=== PATIENT | female | born 2000 | race Caucasian/White ===

== ENCOUNTER 2019-12-28 06:28 | Emergency (ER) | payer OTHER ==
[2019-12-28 07:06] LABS: Blood Gas Oxyhemoglobin 94.9 % (94-97); Blood O2 Saturation 96.5 % (92-98.5)
--- NOTE | 2019-12-28 07:38 | EDPHYS ---
Physician Documentation [facility] Name: Annabella Saenz Age: 19 yrs Sex: Female : 2000 Arrival Date: 12/28/2019 Time: 06:31 Bed 6 Private MD: BOLIVAR Physician Javier Rodrigues HPI: 12/28 07:02 This 19 yrs old Female presents to ER via Ambulatory with complaints of High jmm Blood Sugar. 07:02 The patient or guardian reports hyperglycemia, that was potentially precipitated by not jmm taking insulin. Onset: The symptoms/episode began/occurred today. Associated signs and symptoms: Pertinent negatives: vomiting. This is a 19 year old female with a history of DM I that presents to the ED with elevated blood glucose. Patient states her BGL was taken at work and elevated. Patient states being upset at work due to being told her parents are . 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 The patient states that she was not. Then she was asked whether she had ever been suicidal, patient stated yes and told her at that time her plan would be to use insulin. Patient her work would not let her take her insulin and advised she would need to be evaluated in the ED. Patient currently denies SI, vomiting, shortness of breath. Patient states stress does exacerbate her BGL. . 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 - Coronavirus screen:: The patient has NOT traveled to [place] in the past 14 days. Proceed with normal triage process as indicated. - Social history:: Smoking status: Patient denies any tobacco usage or history of. - Ebola Screening: : No symptoms or risks identified at this time. ROS: 07:02 Constitutional: Negative for fever, chills, and weight loss, Cardiovascular: Negative jmm for chest pain, palpitations, and edema, Respiratory: Negative for shortness of breath, cough, wheezing, and pleuritic chest pain, Abdomen/GI: Negative for abdominal pain, nausea, vomiting, diarrhea, and constipation, Neuro: Negative for headache, weakness, numbness, tingling, and seizure. 07:02 All other systems are negative. 07:02 Endocrine: Negative for neck swelling, polydipsia, polyuria, polyphagia, and marked [facility] weight changes. Exam: 07:02 Constitutional: This is a well developed, well nourished patient who is awake, alert, jmm and in no acute distress. Head/Face: atraumatic. Eyes: EOMI, no conjunctival erythema appreciated ENT: Moist Mucus Membranes Neck: Trachea midline, Supple Chest/axilla: Normal chest wall appearance and motion. Cardiovascular: Regular rate and rhythm. No edema appreciated Respiratory: Normal respirations, no respiratory distress appreciated 07:02 Abdomen/GI: Inspection: abdomen appears normal, Palpation: soft, in all quadrants. 07:02 Musculoskeletal/extremity: ROM: intact in all extremities. 07:02 Skin: Appearance: Color: normal in color. 07:02 Neuro: Orientation: is normal, Mentation: is normal, Memory: is normal. 07:02 Psych: Behavior/mood is pleasant, cooperative. Vital Signs: 06:48 BP 128 / 77; Pulse 100; Resp 16 S; Temp 98.2(O); Pulse Ox 100% on R/A; Weight 72.57 kg bb (R); Height 5 ft. 4 in. (162.56 cm) (R); Pain 0/10; 07:30 BP 115 / 68; Pulse 103; Resp 20; Pulse Ox 100% on R/A; Pain 0/10; em 06:48 Body Mass Index 27.46 (72.57 kg, 162.56 cm) bb MDM: 06:46 Patient medically screened. [facility] 07:20 Data reviewed: vital signs, nurses notes, lab test result(s). [facility] 07:20 Counseling: I had a detailed discussion with the patient and/or guardian regarding: the [facility] historical points, exam findings, and any diagnostic results supporting the discharge/admit diagnosis, the need for further work-up and treatment in the hospital. Refusal of service: The patient/guardian displays adequate decision making capability and despite a detailed discussion of alternatives, benefits, risks, and consequences refuses: Admission to the hospital for further work-up and treatment. ED course: Patient is currently non suicidal with no intent to harm herself. The patient initially refuse labs and IVF. I was able to convince her to get an ABG to test for acidosis. Finger stick and ABG both abnormal. I explained the need to further evaluation along with IVF and possible admission. Patient appeared to be very knowledgeable about her condition and agreed to return to the ED if she develops symptoms or unable to control BGL at home. . 12/28 06:45 Order name: ABG; Complete Time: 07:46 [facility] 12/28 06:33 Order name: Fingerstick Glucose; Complete Time: 06:52 [facility] 12/28 06:55 Order name: Glucose, Ancillary Testing; Complete Time: 07:01 [facility] 12/28 07:20 Order name: Misc. Order: AMA; Complete Time: 07:35 [facility] Administered Medications: No medications were administered Disposition: 12/28/19 07:38 Patient has left against medical advice. - Patients states they are going to Home. - Condition is Stable. Work release form form. Signatures: Dispatcher [employer] [facility] Juancho Isaac PA PA Miquel Bryan, Ayanna Abad RN, RN RN bb Corrections: (The following items were deleted from the chart) 07:37 06:45 Urine Dipstick-Ancillary ordered. [facility] em 07:38 07:38 12/28/2019 07:38 Patients has left against medical advice. Patient states they em are going to Home. Condition is Stable. Forms are Work release form. em 08:09 07:02 This is a 19 year old female with a history of DM I that presents to the ED with [facility] elevated blood glucose. Patient states her BGL was taken at work and elevated. Patient was advised to go to the ED. Denies vomiting, shortness of breath. . [facility] 08:13 07:02 This is a 19 year old female with a history of DM I that presents to the ED with [facility] elevated blood glucose. Patient states her BGL was taken at work and elevated. . [facility]
--- NOTE | 2019-12-28 07:38 | ER ---
Nurse's Notes [facility] Name: Annabella Saenz Age: 19 yrs Sex: Female : 2000 Arrival Date: 12/28/2019 Time: 06:31 Bed 6 Private MD: Diagnosis: Presentation: 12/28 06:43 Presenting complaint: Patient states: she was having some emotional issues at work last bb night and they sent her to the ED to have her blood sugar checked since she is a diabetic type 1. Transition of care: patient was not received from another setting of care. Onset of symptoms was December 27, 2019. Risk Assessment: Do you want to hurt yourself or someone else? Patient reports no desire to harm self or others. Initial Sepsis Screen: Does the patient meet any 2 criteria? No. Patient's initial sepsis screen is negative. Does the patient have a suspected source of infection? No. Patient's initial sepsis screen is negative. Care prior to arrival: None. 06:43 Method Of Arrival: Ambulatory bb 06:43 Acuity: DAREN 3 bb 06:49 Note POC registered > 500 lab draw sent to lab. 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 - Coronavirus screen:: The patient has NOT traveled to [place] in the past 14 days. Proceed with normal triage process as indicated. - Social history:: Smoking status: Patient denies any tobacco usage or history of. - Ebola Screening: : No symptoms or risks identified at this time. Screenin:05 Abuse screen: Denies threats or abuse. Nutritional screening: No deficits noted. em Tuberculosis screening: No symptoms or risk factors identified. Fall Risk None identified. Assessment: 07:05 General: Appears in no apparent distress. comfortable, Behavior is calm, cooperative, em appropriate for age, Denies fever. Pain: Denies pain. Neuro: Level of Consciousness is awake, alert, obeys commands, Oriented to person, place, time, situation, Appropriate for age. Cardiovascular: Capillary refill < 3 seconds Patient's skin is warm and dry. Respiratory: Airway is patent Respiratory effort is even, unlabored, Respiratory pattern is regular, symmetrical. GI: Abdomen is flat, Reports nausea, vomiting. Derm: Skin is intact, is healthy with good turgor, Skin is pink, warm \T\ dry. Musculoskeletal: Capillary refill < 3 seconds, Range of motion: intact in all extremities. 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 Vital Signs: 06:48 BP 128 / 77; Pulse 100; Resp 16 S; Temp 98.2(O); Pulse Ox 100% on R/A; Weight 72.57 kg bb (R); Height 5 ft. 4 in. (162.56 cm) (R); Pain 0/10; 07:30 BP 115 / 68; Pulse 103; Resp 20; Pulse Ox 100% on R/A; Pain 0/10; em 06:48 Body Mass Index 27.46 (72.57 kg, 162.56 cm) ED Course: 06:31 Patient arrived in ED. cl3 06:32 Juancho Isaac PA is PHCP. [facility] 06:32 Javier Rodrigues MD is Attending Physician. [facility] 06:46 Triage completed. bb 06:48 Arm band placed on Patient placed in an exam room, on a stretcher, on pulse oximetry. bb 07:05 Patient has correct armband on for positive identification. Bed in low position. Call em light in reach. Side rails up X2. Adult w/ patient. 07:19 Miquel Mcnair, RN is Primary Nurse. em 07:36 No provider procedures requiring assistance completed. Patient did not have IV access em during this emergency room visit. Administered Medications: No medications were administered Outcome: 07:36 AMA AMA form signed em 07:38 Patient left the ED. em Signatures: Juancho Isaac PA PA Miquel Bryan, RN RN Ayanna Guadarrama RN RN Alicia Milner cl3
== END 2019-12-28 07:38 | disposition left against medical advice (07) ==
LOC: ER 06:28
DX: E11.65 Type 2 diabetes mellitus with hyperglycemia (principal); Z88.0 Allergy status to penicillin; Z79.4 Long term (current) use of insulin; Z53.29 Procedure and treatment not carried out because of patient's decision for other reasons
CPT/HCPCS: 82805; 82947; 99282

== ENCOUNTER 2020-04-12 21:17 | Emergency (ER) | payer BC, OTHER, SELFPAY ==
--- OUTSIDE RECORDS SUMMARY | 2020-04-12 21:19 | XMS REPORT | Continuity of Care Document ---
:2000 Author Organization Personally Information [employer] Care Team Providers Name Role Phone [employer] Unavailable Un available Problems Problem Status Onset Classification Date Comments Sourc e Date Reported DIABETIC Active [facility] KETOACIDOSIS 9 Max DKA Active [facility] 9 Max OTH DIABETES Active Memoria l MELLITUS WITH Ray n KETOACIDOSIS Medications No Data Provided for This Section Allergies, Adverse Reactions, Alerts No Known Medication Allergies Immunizations No Data Provided for This Section Results No Data Provided for This Section Pathology Reports No Data Provided for This Section Diagnostic Reports No Data Provided for This Section Consultation Notes No Data Provided for This Section Discharge Summaries No Data Provided for This Section History and Physicals No Data Provided for This Section Vital Signs No Data Provided for This Section Encounters No Data Provided for This Section Procedures No Data Provided for This Section Assessment and Plan No Data Provided for This Section Plan of Care No Data Provided for This Section Social History No Data Provided for This Section Family History No Data Provided for This Section Advance Directives No Data Provided for This Section Functional Status No Data Provided for This Section
--- OUTSIDE RECORDS SUMMARY | 2020-04-12 21:20 | XMS REPORT | Continuity of Care Document ---
:2000 Author Organization [facility] t Address [address] [place] [address] Care Team Providers Name Role Phone Unavailable Unavailable Unavailable Payers Payer Name Policy Type Policy Number Effective Date Expiration Date S ource Problems Condition Condition Condition Status Onset Resolution Last Treating Co mments Source Name Details Category Date Date Treatment Clinician Date DIABETIC Diagnosis Active 2019-04-04 M emoria KETOACIDOS 03-28 07:19:00 l IS DIABETIC 00:00: Ray n KETOACIDOS 00 IS Active 9 [facility] DKA Diagnosis Active 2019-03-28 Mem oria 5-22 13:40:00 l DKA 00:00: [place] 00 [facility] Active 2019-04-04 Mem oria [facility] 07:19[facility] KETOACIDOS MELLITUS IS WITH KETOACIDOS IS Active [facility] Allergies, Adverse Reactions, Alerts Allergy Allergy Status Severity Reaction(s) Onset Inactive Treating Comm ents Source Name Type Date Date Clinician Penic[place] DA Active [facility] ins 2-04 Clear 00:00: [place] 00 [facility] Medications This patient has no known medications. Procedures This patient has no known procedures. Encounters Start End Encounter Admission Attending Care Care Encounter Source Date/Time Date/Time Type Type Clinicians Facility Department ID 2019-09-02 2019-09-02 Inpatient E [id number] 03:12:00 00:27:00 2019-03-28 2019-03-28 Emergency E [facility] 12:17:00 12:17:00 Results Test Description Test Time Test Comments Results Result Comments Source GLUCOSE BEDSIDE TESTING 2019-01-18 13:36:00 Test Item Value Reference Range Interpretation Comme nts GLUCOSE BEDSIDE TESTING (test code = GLUBED) 200 mg/dL 70-110 H [id number] 12:37:00 Test Item Value Reference Range Interpretation Comments PHOSPHOROUS (test code = PHOS) 3.1 MG/DL 2.5-4.9 N COMPREHENSIVE METABOLIC [id number] 11:51:00 Test Item Value Reference Range Interpretation Comments SODIUM (test code = NA) 132 mmol/L 134-147 L POTASSIUM (test code = 3.5 mmol/L 3.4-5.0 N K) CHLORIDE (test code = 97 mmol/L 100-108 L CL) CARBON DIOXIDE (test 14 mmol/L 21-32 L code = CO2) ANION GAP (test code = 21.0 GAP calc 4.0-15.0 H GAP) GLUCOSE (test code = 353 MG/DL 70-110 H GLU) BLOOD UREA NITROGEN 33 MG/DL 7-18 H (test code = BUN) GLOMERULAR FILTRATION >=60 max estimate >60 RATE (test code = GFR) estGFR CREATININE (test code = 1.1 MG/DL 0.6-1.0 H CREAT) TOTAL PROTEIN (test code 7.7 G/DL 6.4-8.2 N = PROT) ALBUMIN (test code = 3.4 G/DL 3.4-5.0 N ALB) GLOBULIN (test code = 4.3 GM/dL GLOB) ALBUMIN/GLOBULIN RATIO 0.8 RATIO 1.2-2.2 L (test code = A/G) CALCIUM (test code = CA) 9.4 MG/DL 8.5-10.1 N BILIRUBIN TOTAL (test 0.40 MG/DL 0.2-1.2 N code = BILT) SGOT/AST (test code = 17 Unit/L 15-37 N AST) SGPT/ALT (test code = 27 Unit/L 12-78 N ALT) ALKALINE PHOSPHATASE 130 Unit/L 45-117 H TOTAL (test code = ALKP) [id number] 11:51:00 Test Item Value Reference Range Interpretation Comments LIPASE (test code = LIP) 123 Unit/L 114-286 N URINALYSIS [id number] 11:46:00 Test Item Value Reference Range Interpretation Comments UA COLOR (test code = COLU) YELLOW discript YEL/STRAW UA APPEARANCE (test code = CLEAR discript CLEAR APPU) UA GLUCOSE DIPSTICK (test 3+ mg/dL NEG A code = DGLUU) UA BILIRUBIN DIPSTICK (test 2+ mg/dL NEG A code = BILU) UA KETONE DIPSTICK (test 3+ mg/dL NEG A code = KETU) UA SPECIFIC GRAVITY (test 1.020 SG 1.005-1.030 code = SGU) UA BLOOD DIPSTICK (test NEGATIVE mg/DL NEG code = BART) UA PH DIPSTICK (test code = 5.5 pH UNITS 5.0-7.0 BILLIE) UA PROTEIN DIPSTICK (test NEGATIVE mg/dL NEG code = PROU) UA UROBILINIOGEN DIPSTICK 0.2 mg/dL <2.0 (test code = URO) UA NITRITE DIPSTICK (test NEGATIVE SCREEN NEG code = FAUSTINA) UA LEUKOCYTE ESTERASE NEGATIVE Leuk/mcL NEGATIVE DIPSTICK (test code = LEUU) COMPREHENSIVE METABOLIC [id number] 11:45:00 Test Item Value Reference Range Interpretation Comments SODIUM (test code = NA) 132 mmol/L 134-147 L POTASSIUM (test code = K) 3.5 mmol/L 3.4-5.0 N CHLORIDE (test code = CL) 97 mmol/L 100-108 L CARBON DIOXIDE (test code = 14 mmol/L 21-32 L CO2) ANION GAP (test code = GAP) 21.0 GAP calc 4.0-15.0 H GLUCOSE (test code = GLU) 353 MG/DL 70-110 H BLOOD UREA NITROGEN (test code 33 MG/DL 7-18 H = BUN) GLOMERULAR FILTRATION RATE estGFR >60 (test code = GFR) CREATININE (test code = CREAT) MG/DL 0.6-1.0 TOTAL PROTEIN (test code = G/DL 6.4-8.2 PROT) ALBUMIN (test code = ALB) G/DL 3.4-5.0 GLOBULIN (test code = GLOB) GM/dL ALBUMIN/GLOBULIN RATIO (test RATIO 1.2-2.2 code = A/G) CALCIUM (test code = CA) 9.4 MG/DL 8.5-10.1 N BILIRUBIN TOTAL (test code = MG/DL 0.2-1.2 BILT) SGOT/AST (test code = AST) Unit/L 15-37 SGPT/ALT (test code = ALT) Unit/L 12-78 ALKALINE PHOSPHATASE TOTAL Unit/L 45-117 (test code = ALKP) [id number] 11:45:00 Test Item Value Reference Range Interpretation Comments LIPASE (test code = LIP) Unit/L 114-286 UR HCG [id number] 11:41:00 Test Item Value Reference Range Interpretation Comments UR HCG QUAL (test code = HCGQLU) NEGATIVE NEGATIVE GLUCOSE BEDSIDE [id number] 11:36:00 Test Item Value Reference Range Interpretation Comments GLUCOSE BEDSIDE TESTING (test code 339 mg/dL 70-110 H = GLUBED) CBC W/AUTO [id number] 11:36:00 Test Item Value Reference Range Interpretation Comments WHITE BLOOD CELL (test code = 6.5 K/mm3 3.5-11.0 N WBC) RED BLOOD CELL (test code = RBC) 4.46 M/mm3 4.70-6.10 L HEMOGLOBIN (test code = HGB) 14.7 G/DL 10.4-14.9 N HEMATOCRIT (test code = HCT) 43.7 % 31.5-44.1 N MEAN CELL VOLUME (test code = 98.0 Fl 84.5-98.6 N MCV) MEAN CELL HGB (test code = MCH) 33.0 pg 27.0-34.2 N MEAN CELL HGB CONCETRATION (test 33.6 G/DL 31.5-34.0 N code = MCHC) RED CELL DISTRIBUTION WIDTH (test 12.2 SD 11.5-14.5 N code = RDW) PLATELET COUNT (test code = PLT) 316.0 K/mm3 150-450 N MEAN PLATELET VOLUME (test code = 8.50 fL 7.0-10.5 N MPV) NEUTROPHIL % (test code = NT%) 68.0 % 24.0-85.0 N LYMPHOCYTE % (test code = LY%) 22.2 % 20.5-51.1 N MONOCYTE % (test code = MO%) 9.2 % 1.7-9.3 N EOSINOPHIL % (test code = EO%) 0.3 % 0.0-6.0 N BASOPHIL % (test code = BA%) 0.3 % 0.0-2.0 N NEUTROPHIL # (test code = NT#) 4.45 K/mm3 1.8-7.6 N LYMPHOCYTE # (test code = LY#) 1.5 K/mm3 0.6-3.2 N MONOCYTE # (test code = MO#) 0.6 K/mm3 0.3-1.1 N EOSINOPHIL # (test code = EO#) 0.0 K/mm3 0.0-0.4 N BASOPHIL # (test code = BA#) 0.0 K/mm3 0.0-0.1 N MANUAL DIFF REQUIRED (test code = NO DIFF/SCN CRITERIA MDIFF)
[2020-04-12] MEDS ORDERED: NA CHLORIDE 0.9% 1,000 ML ONE ×2 (21:36→22:15)
[2020-04-12] MEDS ORDERED: ONDANSETRON 4 MG/2 ML VIAL ONE (21:36)
[2020-04-12 21:46] LABS: Absolute Lymphocytes (CBC) 2.2 K/uL (0.7-4.9); Basophils % 0.4 % (0-1.3); Hematocrit 46.8 % (36.0-45.0); Lymphocytes % 18.4 % (15.3-44.8); MPV 7.2 fL (7.6-11.3); RBC Red Blood Cell Count 4.77 M/uL (3.86-4.86)
[2020-04-12 22:04] LABS: Potassium 3.4 mmol/L (3.5-5.1)
--- NOTE | 2020-04-12 23:02 | EDPHYS ---
Physician Documentation [facility] Name: Annabella Saenz Age: 19 yrs Sex: Female : 2000 Arrival Date: 04/12/2020 Time: 21:23 Bed 5 Private MD: ED Physician Jesus Brito HPI: 04/12 23:04 This 19 yrs old Female presents to ER via Wheelchair with complaints of kb Vomiting/Diarrhea. 23:04 The patient presents to the emergency department with nausea, vomiting, diarrhea. kb Onset: The symptoms/episode began/occurred 2 hour(s) ago. Possible causes: bad food exposure, milk. The symptoms are aggravated by nothing. The symptoms are alleviated by nothing. Associated signs and symptoms: Pertinent positives: diarrhea, nausea, vomiting. Severity of symptoms: At their worst the symptoms were moderate in the emergency department the symptoms are unchanged. The patient has not experienced similar symptoms in the past. The patient has not recently seen a physician. Pt reports she drank some bad milk around 1600, then started having vomiting and diarrhea at 2000. States she is diabetic so she was afraid of getting dehydrated and going into DKA so she came in. . 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 - Social history:: Smoking status: Reported history of juuling and/or vaping. Patient uses alcohol, only on a social basis. Patient/guardian denies using street drugs. ROS: 23:03 Constitutional: Negative for fever, chills, and weight loss, Neck: Negative for injury, kb pain, and swelling, Cardiovascular: Negative for chest pain, palpitations, and edema, Respiratory: Negative for shortness of breath, cough, wheezing, and pleuritic chest pain, Back: Negative for injury and pain, MS/Extremity: Negative for injury and deformity, Skin: Negative for injury, rash, and discoloration, Neuro: Negative for headache, weakness, numbness, tingling, and seizure. 23:03 Abdomen/GI: Positive for nausea, vomiting, and diarrhea, Negative for abdominal pain. Exam: 23:03 Head/Face: Normocephalic, atraumatic. Chest/axilla: Normal chest wall appearance and kb motion. Nontender with no deformity. No lesions are appreciated. Cardiovascular: Regular rate and rhythm with a normal S1 and S2. No gallops, murmurs, or rubs. Normal PMI, no JVD. No pulse deficits. Respiratory: Lungs have equal breath sounds bilaterally, clear to auscultation and percussion. No rales, rhonchi or wheezes noted. No increased work of breathing, no retractions or nasal flaring. Abdomen/GI: Soft, non-tender, with normal bowel sounds. No distension or tympany. No guarding or rebound. No evidence of tenderness throughout. Skin: Warm, dry with normal turgor. Normal color with no rashes, no lesions, and no evidence of cellulitis. MS/ Extremity: Pulses equal, no cyanosis. Neurovascular intact. Full, normal range of motion. Neuro: Awake and alert, GCS 15, oriented to person, place, time, and situation. Cranial nerves II-XII grossly intact. Motor strength 5/5 in all extremities. Sensory grossly intact. Cerebellar exam normal. Normal gait. 23:03 Constitutional: The patient appears alert, awake, uncomfortable. Vital Signs: 21:31 BP 124 / 88; Pulse 84; Resp 19; Temp 98.3; Pulse Ox 97% ; Pain 0/10; ll1 22:43 BP 110 / 78; Pulse 92; Resp 17; Pulse Ox 100% on R/A; rv 23:06 BP 106 / 86; Pulse 93; Resp 16; Temp 98; Pulse Ox 100% on R/A; rv MDM: 21:25 Patient medically screened. kb 23:01 Data reviewed: vital signs, nurses notes. Data interpreted: Pulse oximetry: on room air kb is 100 %. Interpretation: normal. Counseling: I had a detailed discussion with the patient and/or guardian regarding: the historical points, exam findings, and any diagnostic results supporting the discharge/admit diagnosis, lab results, the need for outpatient follow up, a family practitioner, to return to the emergency department if symptoms worsen or persist or if there are any questions or concerns that arise at home. 23:03 ED course: Pt tolerating PO intake. States she feels much better. . kb 06/06 21:31 Order name: CBC with Diff; Complete Time: 21:55 kb 04/12 21:31 Order name: Basic Metabolic Panel; Complete Time: 22:05 kb 04/12 21:42 Order name: Glucose, Ancillary Testing; Complete Time: 21:44 EDMS 04/12 21:31 Order name: IV Start; Complete Time: 21:32 kb 06 21:31 Order name: Blood Glucose Level; Complete Time: 21:31 kb 04/12 22:45 Order name: PO challenge; Complete Time: 22:45 rv Administered Medications: 21:32 Drug: NS 0.9% 1000 ml Route: IV; Rate: 1000 ml; Site: right forearm; rv 22:11 Follow up: IV Status: Completed infusion; IV Intake: 1000ml rv 21:32 Drug: Zofran (Ondansetron) 4 mg Route: IVP; Site: right forearm; rv 22:11 Follow up: Response: Marked relief of symptoms; Vomiting decreased rv 22:10 Drug: NS 0.9% 1000 ml Route: IV; Rate: 1000 ml; Site: right forearm; rv 22:44 Follow up: IV Status: Completed infusion; IV Intake: 1000ml rv Disposition: 04/13 06:23 Co-signature as Attending Physician, Jesus Brito MD. [email or web address] Disposition: 04/12/20 23:02 Discharged to Home. Impression: Nausea and vomiting, Diarrhea, unspecified. - Condition is Stable. - Discharge Instructions: Nausea and Vomiting, Adult, Hykj-lv-[id number], Diarrhea, Adult, [id number], Food Poisoning, [id number]. - Prescriptions for Zofran 4 mg Oral Tablet - take 1 tablet by ORAL route every 6 hours As needed; 20 tablet. - Medication Reconciliation Form, Thank You Letter, Antibiotic Education, Prescription Opioid Use form. - Follow up: Emergency Department; When: As needed; Reason: Worsening of condition. Follow up: Private Physician; When: 2 - 3 days; Reason: Recheck today's complaints, Continuance of care, Re-evaluation by your physician. Signatures: Dispatcher [employer] EDOR Magdalena Resendiz FNP-C FNP-Anirudh Cordero RN RN Ernie Dejesus RN RN 1 Jesus Brito MD MD 7 Corrections: (The following items were deleted from the chart) 04/12 23:07 23:02 04/12/2020 23:02 Discharged to Home. Impression: Nausea and vomiting; Diarrhea, rv unspecified. Condition is Stable. Forms are Medication Reconciliation Form, Thank You Letter, Antibiotic Education, Prescription Opioid Use. Follow up: Emergency Department; When: As needed; Reason: Worsening of condition. Follow up: Private Physician; When: 2 - 3 days; Reason: Recheck today's complaints, Continuance of care, Re-evaluation by your physician. kb
--- NOTE | 2020-04-12 23:02 | ER ---
Nurse's Notes [facility] Name: Annabella Saenz Age: 19 yrs Sex: Female : 2000 Arrival Date: 04/12/2020 Time: 21:23 Bed 5 Private MD: Diagnosis: Nausea and vomiting;Diarrhea, unspecified Presentation: 04/12 21:31 Chief complaint: Patient states: N/V/D began at 2000 tonight. States she accidentally ll1 drank milk today at 1600. Coronavirus screen: Proceed with normal triage. Patient denies a cough. Patient denies shortness of breath or difficulty breathing. Patient denies measured and/or subjective temperature greater than 100.4F prior to today's visit. Patient denies travel on a cruise ship or to a country the [facility] currently lists as an affected area. Patient denies contact with known and/or suspected case of COVID-19. Ebola Screen: Patient denies travel to an Ebola-affected area in the 21 days before illness onset. Initial Sepsis Screen: Does the patient meet any 2 criteria? No. Patient's initial sepsis screen is negative. Risk Assessment: Do you want to hurt yourself or someone else? Patient reports no desire to harm self or others. Onset of symptoms was April 12, 2020. 21:31 Method Of Arrival: Wheelchair ll1 21:31 Acuity: DAREN 3 ll1 21:34 Initial Sepsis Screen: Does the patient have a suspected source of infection? No. rv Patient's initial sepsis screen is negative. 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 - Social history:: Smoking status: Reported history of juuling and/or vaping. Patient uses alcohol, only on a social basis. Patient/guardian denies using street drugs. Screenin:33 Abuse screen: Denies threats or abuse. Denies injuries from another. Nutritional rv screening: No deficits noted. Tuberculosis screening: No symptoms or risk factors identified. Fall Risk None identified. Assessment: 21:32 General: Appears uncomfortable, Behavior is calm, cooperative. Pain: Denies pain. rv Neuro: Level of Consciousness is awake, alert, obeys commands, Oriented to person, place, time, situation. Cardiovascular: Patient's skin is warm and dry. Cardiovascular: Rhythm is sinus tachycardia. Respiratory: Airway is patent Respiratory effort is even, unlabored. GI: Abdomen is flat, non-distended, Pt is actively vomiting bile, Reports nausea, vomiting, after drinking spoiled milk. Derm: Skin is intact. 22:43 Reassessment: Patient and/or family updated on plan of care and expected duration. Pain rv level reassessed. Patient is alert, oriented x 3, equal unlabored respirations, skin warm/dry/pink. PO CHALLENGE TOLERATED WELL. Patient states feeling better. Patient states symptoms have improved. Pain: Denies pain. Neuro: Level of Consciousness is awake, alert, obeys commands, Oriented to person, place, time, situation. GI: Patient currently denies nausea, vomiting. Vital Signs: 21:31 BP 124 / 88; Pulse 84; Resp 19; Temp 98.3; Pulse Ox 97% ; Pain 0/10; ll1 22:43 BP 110 / 78; Pulse 92; Resp 17; Pulse Ox 100% on R/A; rv 23:06 BP 106 / 86; Pulse 93; Resp 16; Temp 98; Pulse Ox 100% on R/A; rv ED Course: 21:23 Patient arrived in ED. cl3 21:25 Magdalena Resendiz FNP-C [facility]. kb 21:25 Jesus Brito MD is Attending Physician. kb 21:25 Anirudh Emmanuel RN is Primary Nurse. rv 21:30 Inserted saline lock: 20 gauge in right forearm, using aseptic technique. Blood rv collected. 21:30 Initial lab(s) drawn, by in, sent to lab. rv 21:32 Triage completed. ll1 21:33 Arm band placed on Patient placed in an exam room, on a stretcher. ll1 21:34 Patient has correct armband on for positive identification. Bed in low position. Call rv light in reach. Pulse ox on. NIBP on. 23:06 No provider procedures requiring assistance completed. IV discontinued, intact, rv bleeding controlled, No redness/swelling at site. Pressure dressing applied. Administered Medications: 21:32 Drug: NS 0.9% 1000 ml Route: IV; Rate: 1000 ml; Site: right forearm; rv 22:11 Follow up: IV Status: Completed infusion; IV Intake: 1000ml rv 21:32 Drug: Zofran (Ondansetron) 4 mg Route: IVP; Site: right forearm; rv 22:11 Follow up: Response: Marked relief of symptoms; Vomiting decreased rv 22:10 Drug: NS 0.9% 1000 ml Route: IV; Rate: 1000 ml; Site: right forearm; rv 22:44 Follow up: IV Status: Completed infusion; IV Intake: 1000ml rv Intake: 22:11 IV: 1000ml; Total: 1000ml. rv 22:44 IV: 1000ml; Total: 2000ml. rv Outcome: 23:02 Discharge ordered by . kb 23:07 Discharged to home ambulatory. rv 23:07 Condition: good 23:07 Discharge instructions given to patient, Instructed on discharge instructions, follow up and referral plans. medication usage, Demonstrated understanding of instructions, follow-up care, medications, Prescriptions given X 1. 23:07 Patient left the ED. rv Signatures: Magdalena Resendiz, COOK DINNER-C COOK DINNER-Anirudh Cordero, RN RN rv Alicia Dejesus cl3 Ernie Dejesus RN RN ll1
[2020-04-12 23:12] VITALS: O2SAT 100
[2020-04-12 23:14] VITALS: BP 106/86; TEMP 98
== END 2020-04-12 23:07 | disposition home or self-care (01) ==
LOC: ER 21:17
DX: R19.7 Diarrhea, unspecified (principal); E11.9 Type 2 diabetes mellitus without complications; Z88.0 Allergy status to penicillin
CPT/HCPCS: 96361; 85025; 80048; 36415; 82947; 96374; 99284; J7030 ×2; J2405